=== PATIENT | female | born 2000 | race Hispanic/Latino ===

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

== ENCOUNTER 2021-02-02 14:59 | Emergency (ER) | payer OTHER, SELFPAY ==
--- NOTE | 2021-02-02 15:03 | ED.FEMALEGU ---
HPI - Female Genitourinary General Chief complaint: Urogenital-Female Stated complaint: POS UTI Time Seen by Provider: 02/02/21 15:03 Source: patient, RN notes reviewed and old records reviewed Mode of arrival: ambulatory Limitations: no limitations History of Present Illness HPI Narrative: 20-year-old female presents to the [facility] with complaints of UTI symptoms for the last 3 to 4 days. States it became cloudy today. Reports right lower back pain, has a history of nausea and vomiting with the stress. Last menstrual period 20 January. History of anemia and allergies. Denies any surgical history. MD elicited complaint: UTI Related Data Home Medications Medication Instructions Recorded Confirmed cetirizine [Zyrtec] 10 mg PO DAILY 02/02/21 02/02/21 Allergies Allergy/AdvReac Type Severity Reaction Status Date / Time No Known Allergies Allergy Verified 02/02/21 15:14 Review of Systems Review of Systems: All systems reviewed & are unremarkable except as noted in HPI and below Constitutional: Constitutional: Reports no additional constitutional complaints Eyes: Eyes: Reports no additional eye complaints ENT: Reports system reviewed and no additional complaints, except as documented Respiratory: Respiratory: Reports no additional respiratory complaints Gastrointestinal: Gastrointestinal: Reports no additional gastrointestinal complaints, Denies abdominal pain, Denies nausea and Denies vomiting Genitourinary: Genitourinary: Reports as per HPI, Reports nocturia, Reports dysuria, Reports flank pain (Lower, lumbar) and Denies vaginal discharge Musculoskeletal: Musculoskeletal: Reports no additional musculoskeletal complaints Integumentary/Breasts: Skin/Breast: Reports system reviewed and no additional complaints, except as docu Neurologic: Reports system reviewed and no additional complaints, except as documented Psychiatric: Psychiatric: Reports no additional psychiatric complaints Allergic/Immunologic: Allergic/Immunologic: Reports no additional allergic/immunologic complaints [facility] Past Medical History Medical History (Updated 02/02/21 @ 17:28 by Ritu Reynoso) Anemia Surgical History Surgical History (Updated 02/02/21 @ 17:26 by Ritu Reynoso) No significant past surgical history Social History Social History (Updated 02/02/21 @ 17:26 by Ritu Reynoso) Smoking status: Never smoker Occupation/Education: student Gender identity (if verbalized by the patient): Female Comments At the time of my signature, I reviewed and agree with the nursing past medical, surgical, social, and family history. There is no relevant family history pertinent to the patient complaint. Exam Const: General: healthy appearing, no acute distress and alert Nutritional Appearance: well nourished Orientation/consciousness: patient oriented x3 Limitations: no limitations HENMT: Head: normal to inspection Eyes: Conjunctivae: conjunctivae normal Pupils: Equal, round and reactive pupils present Neck: Neck: normal visual inspection, no lymphadenopathy and no meningeal signs Chest: Chest palpation & inspection: normal inspection of the chest Resp: Effort & Inspection: normal respiratory effort and no use of accessory muscles Auscultation: clear to auscultation bilaterally, no crackles, no rales, no rhonchi and no wheezes Cardio: Rate: regular rate Rhythm: regular rhythm GI: GI Palp: Yes Soft to palpation, No Tenderness to palpation present (GI), No Guarding due to palpation present (GI) and No Rebound tenderness present : General: Yes no CVA tenderness Urinary Catheter: Urinary Catheter: urine cloudy Back/Spine/Pelvis: Back: no CVA tenderness Skin: General skin exam: normal color Rashes: no rashes Wounds: no wounds Neuro: General: patient oriented x3, moves all extremities, no meningeal signs and no focal motor deficits Speech: normal speech Extrem: General: normal to inspection and no pe
[2021-02-02 15:10] VITALS: BP 99/71; PULSE 97; RESP 16; TEMP 37.1; O2SAT 100
== END 2021-02-02 15:34 | disposition home or self-care (01) ==
PROVIDERS: Emergency Provider Nurse Practitioner
DX: N39.0 Urinary tract infection, site not specified (principal)
CPT/HCPCS: 81003; 81025; 87077; 87086; 87088; 87186; 99213; G0463

== ENCOUNTER 2021-03-11 17:58 | Emergency (ER) | payer OTHER, SELFPAY ==
--- NOTE | ~2021-03-11 | XR_ITS ---
EXAMINATION: XR chest 2V DATE: 03/11/2021 18:59 INDICATION: Cough. TECHNIQUE: Frontal and lateral views of the chest were obtained. COMPARISON: None. FINDINGS: The chest demonstrates clear lungs without pneumonia, pleural effusion, or pneumothorax. Th e heart size is normal. IMPRESSION: 1. No acute cardiopulmonary disease. Reviewed, dictated and finalized at location A. [employer]
[2021-03-11 18:04] VITALS: BP 150/78; PULSE 84; RESP 12; TEMP 37; O2SAT 98
--- NOTE | 2021-03-11 18:39 | ED.URI ---
HPI - URI/Sore Throat General Chief Complaint: Upper Respiratory Infection Stated Complaint: cough/sob Source: patient and RN notes reviewed Limitations: no limitations History of Present Illness HPI Narrative: The patient, a non-smoker/nondrinker, presents with sore throat. Patient states she has a half week history of sore throat, and some nonproductive cough, nasal congestion. This was preceded by gargling with salt water for removal of tonsil stones. No fever measured, earache; no loss of taste/smell, CP, wheezing, S OB. Vital signs remarkable for blood pressure 150/78; makks-sk-yrra testing is positive for strep. The patient has been informed that they may have pre-hypertension or Hypertension based on a BP reading in the department. I recommend that the patient call the primary care provider listed on their discharge instructions or a physician of their choice this week to arrange follow up for further evaluation of possible pre-hypertension or Hypertension Related Data Home Medications Medication Instructions Recorded Confirmed cetirizine [Zyrtec] 10 mg PO DAILY 02/02/21 03/11/21 Allergies Allergy/AdvReac Type Severity Reaction Status Date / Time No Known Allergies Allergy Verified 03/11/21 18:11 Review of Systems Review of Systems: General/Constitutional: No weight loss,fever Eyes: N0: Redness,discharge Ears/Nose/Throat: No: Epistaxis,ear discharge Respiratory: Denies: Hemoptysis Gastrointestinal: No Vomiting, Bleeding-rectal Skin: No Lumps, eruption Neurologic: No Focal Weakness,Sz Hematologic: Denies: Petechiae/Purpura Psychiatric: No: Suicida ideationl All Other Systems: Reviewed and Negative PMFSH Past Medical History Medical History (Updated 03/11/21 @ 18:41 by Rojas Pike MD) Anemia Surgical History Surgical History (Updated 02/02/21 @ 17:26 by Ritu Reynoso) No significant past surgical history Social History Social History (Updated 02/02/21 @ 17:26 by Ritu Reynoso) Smoking status: Never smoker Gender identity (if verbalized by the patient): Female Comments At time of signature, agree with nursing past medical, surgical, social and family history. There is no relevant family history pertinent to the presenting complaint Exam Narrative: General Appearance: Well appearing, overweight/well nourished EYE: PERRLA, Conjunctiva clear Ears: Auditory canal normal, TM normal Nose: Rhinorrhea, Mucousal erythema Mouth/Throat: MM moist, Uvula midline, Pharyngeal erythema with scant exudate, rare stones Neck: Supple, No adenopathy Respiratory: No respiratory distress, Breath sounds equal, Clear to auscultation Cardiovascular: RRR, No JVD Musculoskeletal: Non tender, Normal strength Skin: Warm, Dry Neurological: A&O x3, CN II-XII intact Psychiatric: Normal mood, Normal affect Course Vital Signs Vital signs: Vital Signs Temperature 98.6 F 03/11/21 18:04 Pulse Rate 84 03/11/21 18:04 Respiratory Rate 12 03/11/21 18:04 Blood Pressure 150/78 H 03/11/21 18:04 Pulse Oximetry 98 03/11/21 18:04 Temperature 98.6 F 03/11/21 18:04 Pulse Rate 84 03/11/21 18:04 Respiratory Rate 12 03/11/21 18:04 Blood Pressure 150/78 H 03/11/21 18:04 Pulse Oximetry 98 03/11/21 18:04 MDM - URI/Sore Throat Lab Data Labs: Lab Results 03/11/21 Range/Units 18:12 POC SARS CoV-2 Ag Negative (Negative) Influenza A Screen Negative Reference Range: Negative Influenza B Screen Negative Reference Range: Negative Strep Screen Positive Group A Strep *(Reference Range: Negative)* Discharge Plan Discharge Clinical Impression: Acute streptococcal pharyngitis Patient Disposition: Home, Self-Care Condition: Stable Instructions: Strep Throat (ED) Prescrip
== END 2021-03-11 19:07 | disposition home or self-care (01) ==
PROVIDERS: Emergency Provider Emergency Medicine
DX: J02.0 Streptococcal pharyngitis (principal); Z20.822 Contact with and (suspected) exposure to COVID-19
CPT/HCPCS: 71046; 87426; 87804; 87880; 99213; C9803; G0463

== ENCOUNTER 2021-06-20 02:31 | Emergency (ER) | payer OTHER, SELFPAY ==
[2021-06-20 02:44] VITALS: BP 147/86; PULSE 88; RESP 15; TEMP 36.6; O2SAT 100
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
[2021-06-20 03:13] LABS: Basophils Absolute Auto 0.1 K/mm3 (0.0-0.1); Basophils Percent Auto 0.8 % (0.2-1.2); Eosinophils Absolute Auto 0.2 K/mm3 (0-0.3); Eosinophils Percent Auto 2.3 % (0-4.4); Hematocrit 37.3 % (37.0-47.0); Immature Granulocyte Absolute 0.03 K/mm3 (0.00-0.031); Immature Granulocyte Percent A 0.3 % (0-0.5); Lymphocytes Absolute Auto 2.14 K/mm3 (0.9-3.2); Lymphocytes Percent Auto 24.9 % (18.3-44.2); Mean Corpuscular HGB Conc 29.5 g/dl (32-36); Mean Corpuscular Hemoglobin 22.4 pg (26-34); Mean Platelet Volume 9.8 fl (7.4-10.4); Monocytes Absolute Auto 0.6 K/mm3 (0.1-0.6); Monocytes Percent Auto 6.9 % (2.6-8.5); Neutrophils Absolute Auto 5.6 K/mm3 (1.3-6.7); Neutrophils Percent Auto 64.8 % (45.5-73.1); Platelet Count Result 395 k/mm3 (150-375); Red Blood Count 4.91 M/mm3 (4.2-5.4); Red Cell Distribution Width 17.2 % (11.5-14.5); White Blood Count 8.6 K/mm3 (4.5-10.0)
[2021-06-20 03:20] LABS: Add Urine Microscopic? YES; Appearance Urine Cloudy (Clear); Bilirubin Urine Negative (Negative); Blood Urine Negative (Negative); Color Urine Yellow (Yellow); Glucose Urine UA Negative (Negative); Ketones Urine Negative (Negative); Leukocyte Esterase Ur 1+ LEU/UL (Negative); Mucus Urine Rare /lpf; Nitrate Urine Negative (Negative); Protein Urine Negative (Negative); RBC Urine 0-2 /hpf (0-2); Specific Grav Ur 1.029 (1.001-1.035); Squamous Epithelial Cell Urine Moderate /hpf (Few); Urobilinogen Urine Negative mg/dL (<2.0); WBC Urine 0-3 /hpf
[2021-06-20 03:31] LABS: Ethanol < 10 mg/dL (<10)
[2021-06-20 03:33] LABS: Alanine Aminotransferase 14 U/L (4-35); Albumin Level 4.4 g/dL (3.7-5.6); Alkaline Phosphatase 79 U/L (45-116); Anion Gap 8 mmol/L (8-16); Aspartate Amino Transferase 32 U/L (14-36); Bilirubin,Total 0.3 mg/dL (0.2-1.3); Blood Urea Nitrogen 12 mg/dL (8-21); Calcium 8.9 mg/dL (8.9-10.7); Carbon Dioxide 24 mmol/L (22-30); Chloride 108 mmol/L (98-107); Estimated CRCL calculation 157 ml/min; Estimated Glomerular Filt Rate > 60; Glucose 99 mg/dL (65-110); Potassium 3.6 mmol/L (3.4-5.0); Sodium 140 mmol/L (134-143)
[2021-06-20 03:48] LABS: Amphetamine Screen Urine Negative (Negative); Barbiturate Screen Urine Negative (Negative); Benzodiazepines Screen Urine Negative (Negative); Cannabinoid Screen Urine Negative (Negative); Cocaine Screen Urine Negative (Negative); Methadone Screen Urine Negative (Negative); Opiate Screen Urine Negative (Negative); Phencyclidine Screen Urine Negative (Negative)
[2021-06-20 04:18] LABS: SARS-CoV-2 RNA PCR Negative
--- NOTE | 2021-06-20 04:19 | PC.NURSE ---
This RN talked to [facility] at [facility] they are going to send someone out.
--- NOTE | 2021-06-20 04:33 | PC.NURSE ---
this RN talked to patient. Patient talked about how her mother had mental health problems and was hospitalized. She stated, she always felt better when she got home from the long hospital stays. I just want to feel better and know what I need to do to make myself feel better and not think like this. Patient is calm and cooperative at this time and said she just feels a little better talking to someone. Patient is playing on phone and has no requests at this time.
--- NOTE | 2021-06-20 06:48 | PC.NURSE ---
Crisis in room talking to patient.
--- NOTE | 2021-06-20 07:24 | PC.NURSE ---
Crisis is currently in the room with pt.
--- NOTE | 2021-06-20 08:49 | PC.NURSE ---
Pt is still speaking with lunchroom worker.
--- NOTE | 2021-06-20 09:07 | PC.NURSE ---
Ordered patient breakfast tray
--- NOTE | 2021-06-20 09:09 | PC.NURSE ---
pattern worker done speaking with patient. She states that the patient told her that she does feel better but still would like to be placed for further treatment. She states that she will make phone calls to look for beds
[2021-06-20 09:16] VITALS: BP 120/87; PULSE 96; RESP 18; TEMP 36.8; O2SAT 99
--- NOTE | 2021-06-20 11:16 | PC.NURSE ---
[facility] stated [facility] were going to speak with admitting doctor and return call.
--- NOTE | 2021-06-20 11:23 | PC.NURSE ---
Lunch tray ordered for patient
--- NOTE | 2021-06-20 12:01 | PC.NURSE ---
Pt given lunch tray at this time
--- NOTE | 2021-06-20 12:01 | PC.NURSE ---
grey roll worker states that she faxed [facility], [facility], and [facility]
[2021-06-20 12:03] VITALS: BP 141/81; PULSE 93; O2SAT 100
--- NOTE | 2021-06-20 13:01 | PC.NURSE ---
Dr De Anda of [facility] accepted pt.
--- NOTE | 2021-06-20 13:09 | PC.NURSE ---
Pt accepted at [facility]. Called [facility] and told them that she was accepted with a bed and Dr epps we no longer needed a bed at their facility
--- NOTE | 2021-06-20 13:37 | PC.NURSE ---
[facility] cancelled per set up and [facility] accpeted transfer eta [facility]
[2021-06-20 15:00] VITALS: BP 138/68; PULSE 91; RESP 20; O2SAT 100
[2021-06-20 18:13] VITALS: BP 146/97; PULSE 73; RESP 16; O2SAT 100
== END 2021-06-20 18:34 ==
PROVIDERS: Emergency Provider General Practice
DX: F32.A Depression, unspecified (principal); Z20.822 Contact with and (suspected) exposure to COVID-19; D64.9 Anemia, unspecified
CPT/HCPCS: 36415; 80053; 80307; 81001; 81025; 84443; 85025; 99284; 99285; C9803; U0003; U0005

== ENCOUNTER 2021-07-02 14:25 | Emergency (ER) | payer OTHER, SELFPAY ==
--- NOTE | 2021-07-02 14:39 | ED.FEMALEGU ---
HPI - Female Genitourinary General Chief complaint: Urogenital-Female Stated complaint: STD EXPOSURE Time Seen by Provider: 07/02/21 14:45 Source: patient Mode of arrival: ambulatory Limitations: no limitations History of Present Illness HPI Narrative: Ms. Ewing is a 20 old female patient presenting to the clinic today with complaints of possible STD exposure. She reports that her partner was tested in the ER approximately 1 week ago and was positive for chlamydia. He has since been treated however he had gotten results back yesterday. Patient denies any vaginal discharge, foul odors, urinary symptoms, vaginal bleeding, or abdominal pain. She would like to have treatment and testing completed for chlamydia and gonorrhea. Last intercourse with this partner was approximately 2 weeks ago. She denies having intercourse with anyone else since that time. Related Data Home Medications Medication Instructions Recorded Confirmed duloxetine mg PO 07/02/21 trazodone 07/02/21 Allergies Allergy/AdvReac Type Severity Reaction Status Date / Time No Known Allergies Allergy Verified 06/20/21 09:32 Review of Systems Review of Systems: Pertinent positives per HPI. Patient denies any fever, chills, rash, headache, visual changes, dizziness, cough, runny nose, sore throat, shortness of breath, chest pain, palpitations, nausea, vomiting, diarrhea, constipation, abdominal pain, or any urinary issues. PMFSH Past Medical History Medical History Anemia Depression Surgical History Surgical History No significant past surgical history Social History Social History Smoking status: Never smoker Substance use type: does not use Gender identity (if verbalized by the patient): Female Comments At the time of my signature, I reviewed and agree with the nursing past medical, surgical, social, and family history. There is no relevant family history pertinent to the patient complaint. Exam Narrative: General: Well-developed, obese, in no apparent distress Cardio: Regular rate and rhythm, s1 and s2 normal, no murmur appreciated. Resp: Clear to auscultation bilaterally, no rhonchi, rales, wheezing or rubs. Abdomen: Soft, pliable, bowel sounds present in all quadrants, non-tender to palpation, no suprapubic tenderness, no CVAT tenderness. : Exam deferred Course Course Emergency Course: Portions of this record may have been created with voice recognition software. Level of Care: Express Care Visit Vital Signs Vital signs: Vital Signs Temperature 36.4 C L 07/02/21 14:40 Pulse Rate 86 07/02/21 14:40 Respiratory Rate 16 07/02/21 14:40 Blood Pressure 129/82 07/02/21 14:40 Pulse Oximetry 97 07/02/21 14:40 Temperature 36.4 C L 07/02/21 14:40 Pulse Rate 86 07/02/21 14:40 Respiratory Rate 16 07/02/21 14:40 Blood Pressure 129/82 07/02/21 14:40 Pulse Oximetry 97 07/02/21 14:40 Vital signs reviewed MDM - Female Genitourinary MDM Narrative Medical decision making narrative: Upon assessment patient is resting comfortably on the exam table. She denies any urinary symptom is, vaginal discharge, vaginal bleeding, abdominal pain, or fever chills. Will treat empirically for chlamydia exposure by giving her 500 mg of Rocephin IM with lidocaine and a course of doxycycline. Dirty urine will be sent out to test for trichomonas, chlamydia, and gonorrhea. Patient is to be days for results or else we will contact her when we get results in. Was educated to avoid intercourse for at least 7 days after treatment completed. Patient declined any further STI or blood testing at this time Differential Diagnosis Differential diagnosis: Likely urinary tract infection, bacterial vaginosis, trichomoniasis, cervicitis, vaginitis and other (
[2021-07-02 14:40] VITALS: BP 129/82; PULSE 86; RESP 16; TEMP 36.4; O2SAT 97
[2021-07-02] MEDS: cefTRIAXone 500 MG, LIDOCAINE HCL 1% LOCAL INJ 1 ML IM (14:58)
== END 2021-07-02 15:19 | disposition home or self-care (01) ==
PROVIDERS: Emergency Provider Nurse Practitioner Family
DX: Z20.2 Contact with and (suspected) exposure to infections with a predominantly sexual mode of transmission (principal)
CPT/HCPCS: 87491; 87591; 87661; 96372; 99214; G0463; J0696